=== PATIENT | male | born 1960 | race Caucasian/White ===

== ENCOUNTER 2022-04-14 09:53 | Emergency (ER) | payer MEDICAID, SELFPAY ==
[2022-04-14 09:53] VITALS: BP 123/83; PULSE 79; RESP 16; TEMP 37; O2SAT 100; BMI 28.0
[2022-04-14 10:13] VITALS: BP 123/83; PULSE 79; RESP 16; TEMP 37; O2SAT 100; BMI 28.0
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
[2022-04-14 11:13] VITALS: BP 123/83; PULSE 79; RESP 16; TEMP 37
== END 2022-04-14 11:25 | disposition home or self-care (01) ==
LOC: ER 10:02 → UTC 10:02
PROVIDERS: Emergency Provider Nurse Practitioner Family
DX: S61.012A Laceration without foreign body of left thumb without damage to nail, initial encounter (principal); W26.0XXA Contact with knife, initial encounter
CPT/HCPCS: 12001; 99213; G0463

== ENCOUNTER → 2022-06-22 13:50 | Outpatient (CLI) | payer MEDICAID, SELFPAY ==
[2022-06-22 18:32] LABS: Basophils # 0.1 K/mm3 (0-0.2); Basophils % 1.1 % (0.1-2.0); Eosinophils # 0.2 K/mm3 (0.0-0.4); Eosinophils % 4.1 % (0.1-12.0); Hematocrit 40.8 % (42.0-52.0); Hemoglobin 13.4 g/dL (14.1-18.0); Lymphocytes # 1.7 K/mm3 (0.7-4.5); Lymphocytes % 33.3 % (10-50); Mean Corpuscular HGB Conc 32.8 g/dL (31.8-35.4); Mean Corpuscular Volume 94.6 fl (80-94); Mean Platelet Volume 8.3 fl (7.4-10.4); Monocytes # 0.4 K/mm3 (0.1-1.0); Neutrophils # 2.8 K/mm3 (1.8-7.8); Neutrophils % 54.5 % (37.0-80.0); Platelet Count 189 K/mm3 (142-424); Red Blood Count 4.32 M/mm3 (4.60-6.20); Red Cell Distribution Width 14.4 % (11.5-17.5); White Blood Count 5.2 K/mm3 (4.8-10.8)
[2022-06-22 19:42] LABS: Alanine Aminotransferase 26 U/L (12-78); Albumin Level 4.5 g/dl (3.5-5.0); Albumin/Globulin Ratio 1.5 (1.1-1.8); Alkaline Phosphatase 164 U/L (38-126); Anion Gap 17.4 mEq/L (5-15); Aspartate Amino Transferase 49 U/L (17-59); Blood Urea Nitrogen 23 mg/dl (9-20); Calcium 8.9 mg/dl (8.4-10.2); Carbon Dioxide 27 mmol/L (22.0-30.0); Chloride 100 mmol/L (98-107); Chol/HDL Ratio 2.5 (1-3.5); Cholesterol 171 mg/dl (140-200); Estimated Glomerular Filt Rate 85 ml/min (>60); GFR (African American) 103 ML/MIN (>60); Glucose 85 mg/dl (74-100); HDL Cholesterol 69 mg/dl (40-60); Potassium 4.4 mmoL/L (3.5-5.1); Sodium 140 mmol/L (136-145); Total Protein,Serum 7.5 g/dl (6.3-8.2); Triglycerides 78 mg/dl (30-150); VLDL Cholesterol 16 mg/dL (0-40)
[2022-06-22 19:45] LABS: Bilirubin,Total < 0.1 mg/dl (0.2-1.3)
[2022-06-22 19:54] LABS: Direct LDL Cholesterol 73.98 mg/dL (100-129)
[2022-06-22 20:07] LABS: Barbiturates Screen,Urine Negative ng/ml (<200)
[2022-06-22 20:08] LABS: Benzodiazepines Screen,Urine Positive ng/ml (<200); Cannabinoid Screen,Urine Positive ng/ml (<50)
[2022-06-22 20:09] LABS: Cocaine Screen,Urine Negative ng/ml (<300)
[2022-06-22 20:10] LABS: Methadone Screen,Urine Negative ng/ml (<300); Opiate Screen,Urine Negative ng/ml (<300)
[2022-06-22 20:11] LABS: Phencyclidine Screen,Urine Negative ng/ml (<25)
[2022-06-22 20:13] LABS: Thyroid Stimulating Hormone 2.85 uIU/mL (0.465-4.68)
[2022-06-22 20:42] LABS: Amphetamine/Metha Screen,Urine Positive ng/ml (<1000)
[2022-06-24 09:33] LABS: Hepatitis B Surface Antigen Negative (Negative); Hepatitis C Antibody >11.0 s/co ratio (0.0-0.9)
[2022-06-24 10:10] LABS: HIV Screen 4th Generation wRfx Non Reactive (Non Reactive)
[2022-06-24 13:08] LABS: Hep A Ab, Total Positive (Negative); Hep B Core Ab, Total Negative (Negative); Hep B Surface Ab, Qual Reactive (.)
[2022-06-25 22:07] LABS: ALT (SGPT) P5P 26 IU/L (0-55); Alpha 2-Macroglobulins, Qn 343 mg/dL (110-276); Apolipoprotein A-1 174 mg/dL (101-178); Bilirubin, Total 0.2 mg/dL (0.0-1.2); Fibrosis Score 0.39 (0.00-0.21); Fibrosis Stage F1-F2 (.); GGT 122 IU/L (0-65); Haptoglobin 182 mg/dL (32-363); Necroinflammat Activity Grade A0-No activity (.); Necroinflammat Activity Score 0.13 (0.00-0.17)
== END ==
PROVIDERS: PCP Nurse Practitioner Family; Visit Provider Nurse Practitioner Family
DX: B34.9 Viral infection, unspecified (principal); I10 Essential (primary) hypertension; E78.5 Hyperlipidemia, unspecified; R53.83 Other fatigue; Z79.899 Other long term (current) drug therapy
CPT/HCPCS: 80053; 80061; 80305; 81596; 84443; 85025; 86703; 86704; 86706; 86708; 87340; 87380; 87522; G0432

== ENCOUNTER 2022-07-31 22:40 | Emergency (ER) | payer MEDICAID, SELFPAY ==
[2022-07-31 22:41] VITALS: BP 141/98; PULSE 103; RESP 18; TEMP 36.8; O2SAT 97; BMI 27.1
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
[2022-07-31 23:13] LABS: Basophils # 0.1 K/mm3 (0-0.2); Basophils % 1.3 % (0.1-2.0); Eosinophils # 0.2 K/mm3 (0.0-0.4); Eosinophils % 1.8 % (0.1-12.0); Hematocrit 44.3 % (42.0-52.0); Hemoglobin 14.6 g/dL (14.1-18.0); Lymphocytes # 3.4 K/mm3 (0.7-4.5); Lymphocytes % 42.1 % (10-50); Mean Corpuscular HGB Conc 32.9 g/dL (31.8-35.4); Mean Corpuscular Volume 94.2 fl (80-94); Mean Platelet Volume 7.5 fl (7.4-10.4); Monocytes # 0.4 K/mm3 (0.1-1.0); Monocytes % 4.4 % (1.7-9.3); Neutrophils # 4.1 K/mm3 (1.8-7.8); Neutrophils % 50.3 % (37.0-80.0); Platelet Count 345 K/mm3 (142-424); Red Cell Distribution Width 14.8 % (11.5-17.5); White Blood Count 8.2 K/mm3 (4.8-10.8)
[2022-07-31 23:24] LABS: Alanine Aminotransferase 33 U/L (12-78); Albumin Level 5.2 g/dl (3.5-5.0); Albumin/Globulin Ratio 1.6 (1.1-1.8); Alkaline Phosphatase 136 U/L (38-126); Anion Gap 20.2 mEq/L (5-15); Aspartate Amino Transferase 73 U/L (17-59); Bilirubin,Total 0.2 mg/dl (0.2-1.3); Blood Urea Nitrogen 22 mg/dl (9-20); Calcium 9.9 mg/dl (8.4-10.2); Carbon Dioxide 32 mmol/L (22.0-30.0); Chloride 97 mmol/L (98-107); Creatinine Clearance Estimated 68 mL/min (50-200); Estimated Glomerular Filt Rate 61 ml/min (>60); Ethyl Alcohol 271 mg/dl (0-10); GFR (African American) 74 ML/MIN (>60); Globulin 3.3 g/dL (1.3-3.2); Glucose 114 mg/dl (74-100); Potassium 4.2 mmoL/L (3.5-5.1); Sodium 145 mmol/L (136-145); Total Protein,Serum 8.5 g/dl (6.3-8.2)
[2022-07-31 23:29] LABS: Microscopic, Urine URINE MICROSCOPIC (MICROSCOPIC)
[2022-07-31 23:30] LABS: Appearance,Urine CLEAR (Clear); Bilirubin,Urine Negative (Negative); Blood, Urine TRACE-I (Negative); Color,Urine YELLOW (Yellow); Glucose,Urine (UA) Negative (Negative); Ketones,Urine Negative (Negative); Leukocyte Esterase,Urine Negative (Negative); Nitrate,Urine Negative (Negative); Protein,Urine Negative (Negative); Urobilinogen,Urine 0.2 EU/dl (0.2)
[2022-07-31 23:41] LABS: Amphetamine/Metha Screen,Urine Negative ng/ml (<1000); Benzodiazepines Screen,Urine Positive ng/ml (<200)
[2022-07-31 23:42] LABS: Barbiturates Screen,Urine Negative ng/ml (<200)
[2022-07-31 23:43] LABS: Cannabinoid Screen,Urine Negative ng/ml (<50); Cocaine Screen,Urine Negative ng/ml (<300)
[2022-07-31 23:44] LABS: Methadone Screen,Urine Negative ng/ml (<300)
[2022-07-31 23:45] LABS: Opiate Screen,Urine Negative ng/ml (<300); Phencyclidine Screen,Urine Negative ng/ml (<25)
[2022-07-31 23:50] LABS: Bacteria,Urine Trace /lpf; Squamous Epithelial Cell,Urine Occasional #/hpf (0-5); WBC,Urine Occasional #/hpf (0-3)
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
--- NOTE | 2022-07-31 23:54 | PC.NURSE ---
Dr. Robledo at
[2022-07-31 23:56] VITALS: BP 140/95; PULSE 98; RESP 18; TEMP 36.6; O2SAT 99
== END 2022-08-01 ==
PROVIDERS: Emergency Provider Emergency Medicine
DX: Z02.89 Encounter for other administrative examinations (principal); R68.84 Jaw pain; M25.562 Pain in left knee; S00.93XA Contusion of unspecified part of head, initial encounter; R78.0 Finding of alcohol in blood; W19.XXXA Unspecified fall, initial encounter
CPT/HCPCS: 70450; 70486; 71045; 72125; 72170; 73562; 80053; 80305; 81001; 85025; 99285

== ENCOUNTER 2022-09-19 12:09 | Emergency (ER) | payer MEDICAID, SELFPAY ==
--- NOTE | 2022-09-19 12:13 | PC.NURSE ---
JULIANA PATTEN At
[2022-09-19 12:16] VITALS: BP 131/95; PULSE 120; RESP 20; TEMP 36.8; O2SAT 97; BMI 27.4
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
--- NOTE | 2022-09-19 12:31 | PC.NURSE ---
pt to radiology
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
--- NOTE | 2022-09-19 13:35 | PC.NURSE ---
speaking to [facility]
--- NOTE | 2022-09-19 13:44 | PC.NURSE ---
[facility] at [facility] speaking with patient
[2022-09-19 13:45] VITALS: BP 130/85; PULSE 110; RESP 20; TEMP 36.8; O2SAT 98
== END 2022-09-19 13:55 | disposition home or self-care (01) ==
PROVIDERS: Emergency Provider Emergency Medicine
DX: S01.01XA Laceration without foreign body of scalp, initial encounter (principal); F10.10 Alcohol abuse, uncomplicated; F17.210 Nicotine dependence, cigarettes, uncomplicated; Y00.XXXA Assault by blunt object, initial encounter; Z23 Encounter for immunization
CPT/HCPCS: 12001; 70450; 71045; 72125; 73070; 90471; 90715; 99285

== ENCOUNTER 2022-10-06 11:50 | Emergency (ER) | payer MEDICAID, SELFPAY ==
[2022-10-06 12:00] VITALS: BP 114/76; PULSE 86; RESP 19; TEMP 37; O2SAT 98; BMI 27.4
[2022-10-06 12:24] VITALS: BP 114/76; PULSE 86; RESP 19; TEMP 37; O2SAT 100; BMI 27.3
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
[2022-10-06 13:04] VITALS: BP 114/76; PULSE 86; RESP 19; TEMP 37; O2SAT 100
== END 2022-10-06 13:13 | disposition home or self-care (01) ==
PROVIDERS: Emergency Provider Nurse Practitioner Family
DX: M25.552 Pain in left hip (principal); S60.512D Abrasion of left hand, subsequent encounter; W22.8XXD Striking against or struck by other objects, subsequent encounter; Z48.02 Encounter for removal of sutures
CPT/HCPCS: 73502; 99212; 99213; G0463